=== PATIENT | female | born 1985 | race Hispanic/Latino ===

== ENCOUNTER 2020-12-29 13:05 | Emergency (ER) | payer BC ==
[~2020-12-29] VITALS: Ht 160 cm; Wt 58.7 kg
[2020-12-29 15:08] VITALS: BP 171/117
== END 2020-12-29 15:14 | disposition home or self-care (01) ==
LOC: FSED 13:16
DX: R10.84 Generalized abdominal pain (principal); I12.0 Hypertensive chronic kidney disease with stage 5 chronic kidney disease or end stage renal disease; N18.6 End stage renal disease; Z99.2 Dependence on renal dialysis
CPT/HCPCS: 74176; 80048; 80076; 81003; 81025; 85025; 99284

== ENCOUNTER 2021-02-16 09:15 | Emergency (ER) | payer BC ==
[~2021-02-16] VITALS: Ht 160 cm; Wt 63.6 kg
[2021-02-16] MEDS ORDERED: HYDRALAZINE HCL 20 MG/ML VIAL IV STA ×2 (09:39→10:23)
[2021-02-16] MEDS ORDERED: VITAMIN D250 MC1 (09:42)
[2021-02-16] MEDS ORDERED: AURYXIA210 MG PO (09:42)
[2021-02-16] MEDS ORDERED: NIFEDIPINE ER30 M1 PO (09:42)
[2021-02-16] MEDS ORDERED: RIFAMPIN600 MG (09:42)
[2021-02-16] MEDS ORDERED: HYDRALAZINE HCL50 MG PO (09:42)
[2021-02-16] MEDS ORDERED: HYDRALAZINE HCL 20 MG/ML VIAL ONE (09:56)
[2021-02-16] MEDS ORDERED: FUROSEMIDE INJ 10 MG/ML 10 ML VIAL IV ONE (10:30)
[2021-02-16] MEDS ORDERED: FUROSEMIDE INJ 10 MG/ML 4 ML VIAL ONE (10:35)
== END 2021-02-16 12:17 | disposition home or self-care (01) ==
LOC: FSED 09:41
DX: I16.9 Hypertensive crisis, unspecified (principal); I50.9 Heart failure, unspecified; I12.0 Hypertensive chronic kidney disease with stage 5 chronic kidney disease or end stage renal disease; N18.6 End stage renal disease; Z99.2 Dependence on renal dialysis
CPT/HCPCS: 71045; 80053; 82553; 83880; 84484; 85025; 93005; 96374; 96375; 96376; 99284; J0360; J1940

== ENCOUNTER 2021-03-02 13:43 | Emergency (ER) | payer BC, MEDICARE ==
[~2021-03-02] VITALS: Ht 160 cm; Wt 63.5 kg
[~2021-03-02 13:43] MED LIST: AURYXIA210 MG PO; HYDRALAZINE HCL50 MG PO; NIFEDIPINE ER30 M1 PO; RIFAMPIN600 MG; VITAMIN D250 MC1
[2021-03-02] MEDS ORDERED: HYDRALAZINE HCL 20 MG/ML VIAL IV STA ×2 (13:48→16:21)
[2021-03-02 14:03] LABS: BASOPHILS # (AUTO) 0.1 (0.0-0.1); BASOPHILS % 1.4 % (0.0-1.0); EOSINOPHILS # (AUTO) 0.2 (0.0-0.4); EOSINOPHILS % 3.4 % (0.0-6.0); HEMATOCRIT 33.4 % (34.2-44.1); LYMPHOCYTES # (AUTO) 1.4 (1.0-3.2); LYMPHOCYTES % 28.8 % (18.0-39.1); MEAN CORPUSCULAR HEMOGLOBIN 32.8 pg (28-32); MEAN CORPUSCULAR HGB CONC 32.9 g/dL (31-35); MEAN CORPUSCULAR VOLUME 99.7 fL (81-99); MONOCYTES # (AUTO) 0.5 (0.2-0.8); MONOCYTES % 9.1 % (4.4-11.3); NEUTROPHILS # (AUTO) 2.9 (2.1-6.9); NEUTROPHILS % 57.3 % (38.7-80.0); PLATELET COUNT 155 x10e3/uL (140-360); RED BLOOD COUNT 3.35 x10e6/uL (3.6-5.1); RED CELL DISTRIBUTION WIDTH 12.2 % (11.7-14.4)
[2021-03-02 14:14] LABS: INR 0.91
[2021-03-02 14:15] LABS: PARTIAL THROMBOPLASTIN TIME 26.8 seconds (23.8-35.5)
[2021-03-02 14:24] LABS: ALANINE AMINOTRANSFERASE 24 IU/L (0-55); ALBUMIN 3.2 g/dL (3.5-5.0); ALBUMIN/GLOBULIN RATIO 1.1 (0.8-2.0); ALKALINE PHOSPHATASE 97 IU/L (40-150); BLOOD UREA NITROGEN 43 mg/dL (7-26); BUN/CREATININE RATIO 7 (6-25); CALCIUM 7.9 mg/dL (8.4-10.2); CARBON DIOXIDE 26 mmol/L (22-29); CHLORIDE 101 mmol/L (98-107); CREATINE KINASE 130 IU/L (29-168); CREATININE, SERUM 6.54 mg/dL (0.57-1.11); EST GLOMERULAR FILTRATION RATE 7 ML/MIN (60-); GLUCOSE 112 mg/dL (74-118); SODIUM 138 mmol/L (136-145)
[2021-03-02] MEDS ORDERED: ACETAMINOPHEN 325 MG TAB PO ONE (16:45)
[2021-03-02] MEDS ORDERED: FUROSEMIDE INJ 10 MG/ML 4 ML VIAL IV ONE (17:30)
== END 2021-03-02 18:01 | disposition home or self-care (01) ==
LOC: ER 13:52
DX: I12.0 Hypertensive chronic kidney disease with stage 5 chronic kidney disease or end stage renal disease (principal); I16.0 Hypertensive urgency; N18.6 End stage renal disease; R20.0 Anesthesia of skin; Z88.8 Allergy status to other drugs, medicaments and biological substances; Z99.2 Dependence on renal dialysis; Z79.899 Other long term (current) drug therapy
CPT/HCPCS: 36415; 70450; 71045; 72125; 80053; 82550; 82553; 83880; 84484; 84702; 85025; 85610; 85730; 93005; 99284; J0360; J1940